=== PATIENT | male | born 1970 | race Caucasian/White ===

== ENCOUNTER 2016-07-29 15:16 | Emergency (ER) | payer OTHER ==
[~2016-07-29] VITALS: Ht 172.7 cm; Wt 113.4 kg
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
[2016-07-29 16:42] VITALS: BP 149/85
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
== END 2016-07-29 17:13 | disposition home or self-care (01) ==
LOC: ER 15:16
DX: M25.522 Pain in left elbow (principal); M25.552 Pain in left hip; M25.572 Pain in left ankle and joints of left foot; R00.0 Tachycardia, unspecified; V27.4XXA Motorcycle driver injured in collision with fixed or stationary object in traffic accident, initial encounter; Y93.55 Activity, bike riding; Y92.89 Other specified places as the place of occurrence of the external cause; Y99.8 Other external cause status
CPT/HCPCS: 73080; 73502; 73610; 99284